=== PATIENT | female | born 1960 | race Hispanic/Latino ===

== ENCOUNTER 2018-10-25 09:15 | Outpatient (CLI) | payer OTHER ==
--- NOTE | 2018-10-25 10:21 | RAD ---
MRI SCREENING TWO VIEWS SKULL: Date: 10-25-18 Provided Clinical History: History of inner ear surgery. FINDINGS: There is no metallic density seen within the orbits or inner ear. IMPRESSION: As above. POS: OFF
--- NOTE | 2018-10-25 13:17 | MRI ---
MRI OF THE LEFT KNEE: DATE: 10/25/2018. PROVIDED CLINICAL HISTORY: Left knee pain. FINDINGS: Evaluation is limited by patient body habitus . The cruciate and collateral ligaments appear grossly intact. There is extensive nondisplaced degenerative tearing involving the medial and lateral menisci. There is extensive full-thickness articular cartilage loss involving the central weightbearing portions of the medial femorotibial joint. There is extensive full-thickness articular cartilage loss involving the patella and trochlea. There is a moderate knee joint effusion. No focal concerning regional marrow or muscular signal abno rmality is evident. Probable 6 mm intraarticular body within the suprapatellar bursa. IMPRESSION: 1. Limited study. 2. 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 3. Prominent articular cartilage loss involving the patellofemoral and medial femorotibial joints. 4. Moderate knee joint effusion with prominent Solis's cyst formation. POS: OFF
--- NOTE | 2018-10-25 14:16 | CT ---
MRI CLEARANCE STUDY CT TEMPORAL BONES NONCONTRAST: Date: 10-25-18 ATTN BILLING DEPARTMENT: The patient should not be charged for either the technical fee or profession al fee for this CT. History: 58-year-old female scheduled for MR of lower extremity today. History of ear surgery. Uncertainty reg arding whether there is a metallic ossicular prosthesis. FINDINGS: There is a left mastoidectomy defect, with absence of the left posterior external auditory canal osse ous wall, such that the region of the left mastoid antrum is obliterated, widely communicating with t he external auditory canal. Despite this, there is what appears to be a tympanic membrane which is thickened posteriorly and supe riorly. There appears to be a tiny defect in the left tympanic membrane along the anterior edge of th is thickening. Also, the stapes remains, with its crura and foot plate at the oval window. The rest o f the ossicles are absent. There is no ossicular prosthesis. Other than the thickening of the left ty mpanic membrane, the left middle ear cavity, and the mastoidectomy defect are clear. The right ossicles are intact. The right middle ear cavity, right internal auditory canal and right m astoid antrum are clear. There is a paucity of pneumatized right mastoid air cells. The bilateral internal auditory canals, cochlea, vestibules, vesicular aqua ducts, semicircular canal s, facial nerve canals, carotid canals and jugular bulbs have normal morphology. There is no dehiscen se of the superior semicircular canals. Right scutum is intact. No dehiscense of tegmen tympani or te gmen mastoideum bilaterally. IMPRESSION: 1. No ossicular prosthesis. The patient is cleared for MRI. 2. Status post modified left wall-down mastectomy. Stapes is intact, but the rest of the ossicles are absent. 3. Signs of left tympanic membrane repair. Possible current perforation of left tympanic membrane. 4. Otherwise, the mastectomy bowl is clear. 5. Paucity of right pneumatized right mastoid air cells. 6. No other abnormality of right temporal bone structures. POS: [facility]
== END 2018-10-25 09:16 | disposition home or self-care (01) ==
LOC: BICMRI 09:15
PROVIDERS: ATTEND Family Medicine
DX: M25.461 Effusion, right knee (principal); M25.462 Effusion, left knee; M17.0 Bilateral primary osteoarthritis of knee; M25.561 Pain in right knee; M25.562 Pain in left knee; M23.301 Other meniscus derangements, unspecified lateral meniscus, left knee; M23.304 Other meniscus derangements, unspecified medial meniscus, left knee; M71.22 Synovial cyst of popliteal space [Baker], left knee; Z90.12 Acquired absence of left breast and nipple; Z98.890 Other specified postprocedural states
CPT/HCPCS: 70250; 70480

== ENCOUNTER 2018-12-11 08:55 | Outpatient (CLI) | payer OTHER ==
--- NOTE | 2018-12-11 11:03 | MMO ---
BILATERAL MAMMOGRAMS: DATE: 12/11/18 HISTORY: Screening mammography. COMPARISON: Multiple exams back to 07/17/13. FINDINGS: Scattered fibroglandular densities and benign-appearing calcifications. No dominant mass or suspiciou s calcifications. The study was evaluated with the assistance of computer-aided detection. IMPRESSION: BIRADS 1: Negative Suggest routine follow-up. POS: [facility]
== END 2018-12-11 08:56 | disposition home or self-care (01) ==
LOC: SCSMAMMO 08:55
PROVIDERS: ATTEND Family Medicine
DX: Z12.31 Encounter for screening mammogram for malignant neoplasm of breast (principal)
CPT/HCPCS: 77067

== ENCOUNTER 2019-03-25 21:48 | Emergency (ER) | payer OTHER ==
--- NOTE | 2019-03-25 22:39 | RAD ---
2 views chest: 03/25/2019 COMPARISON: None HISTORY: Substernal chest pressure with radiation to the left arm FINDINGS: Mild pulmonary vascular congestion. No pneumothorax, pleural fluid, focal consolidation, or alveolar edema. Cardiac silhouette is mildly prominent on the lateral examination. Multilevel mild mid thoracic spine degenerative change noted. IMPRESSION: Pulmonary vascular congestion with no focal consolidation or alveolar edema.
[2019-03-25 22:49] LABS: #Eosinphils 0.1 thou/uL (0.0-0.7); #Lymphocytes 0.8 thou/uL (1.20-3.40); #Monocytes 0.6 thou/uL (0.11-0.59); #Neutrophils 7.6 thou/uL (1.40-6.50); %Basophils 0.2 % (0.0-1.0); %Eosinophils 0.8 % (0.0-10.0); %Monocytes 6.3 % (0.0-10.0); %Neutrophils 83.7 % (42.0-75.0); Hemoglobin 11.1 g/dL (12.0-16.0); Mean Corpuscular HGB CONC 31.1 g/dL (32.0-36.0); Mean Corpuscular Hemoglobin 25.2 pg (27.0-31.0); Mean Platelet Volume 7.9 fL (7.4-10.4); Platelet Count 234 thou/uL (130-400); RBC Distribution Width 14.1 % (11.5-14.5); Red Blood Cell (RBC) Count 4.41 mill/uL (4.20-5.40); White Blood Cell (WBC) Count 9.1 thou/uL (4.8-10.8)
[2019-03-25 23:07] LABS: ALT (SGPT) 15 U/L (8-55); AST (SGOT) 17 U/L (5-34); Albumin 4.1 g/dL (3.5-5.0); Alkaline Phosphatase 39 U/L (40-150); Anion Gap 11 mmol/L (10-20); BUN (Urea Nitrogen) 16 mg/dL (9.8-20.1); Bilirubin, Total 0.3 mg/dL (0.2-1.2); CK (CPK) 85 U/L (29-168); Calc. Creatinine Clearance 0 mL/min (70-130); Calcium 8.9 mg/dL (7.8-10.44); Carbon Dioxide 27 mmol/L (22-29); Chloride 103 mmol/L (98-107); Estimated GFR-MDRD 66; Globulin 2.6 g/dL (2.4-3.5); Glucose 88 mg/dL (70-105); Potassium 3.9 mmol/L (3.5-5.1); Protein, Total 6.7 g/dL (6.0-8.3); Sodium 137 mmol/L (136-145)
[2019-03-26 02:09] LABS: Troponin I Less than 0.010 ng/mL (< 0.028)
--- NOTE | 2019-03-29 09:46 | EKG ---
Test Reason : REPEAT Blood Pressure : / mmHG Vent. Rate : 058 BPM Atrial Rate : 058 BPM P-R Int : 154 ms QRS Dur : 084 ms QT Int : 456 ms P-R-T Axes : 039 015 063 degrees QTc Int : 447 ms Sinus bradycardia Possible Left atrial enlargement Borderline ECG Confirmed by DONOVAN NEELY DO ([id number]), videotape editor MIKE SLADE ([id number]) on 03/29/2019 9:46:23 AM Referred By: Confirmed By:DONOVAN NEELY DO
--- NOTE | 2019-03-29 10:34 | EKG ---
Test Reason : Blood Pressure : / mmHG Vent. Rate : 050 BPM Atrial Rate : 050 BPM P-R Int : 164 ms QRS Dur : 074 ms QT Int : 472 ms P-R-T Axes : 021 004 026 degrees QTc Int : 430 ms Sinus bradycardia Otherwise normal ECG Confirmed by HARSHAL MONGE ([id number]), international editorial producer MIKE SLADE ([id number]) on 03/29/2019 10:34:07 AM Referred By: Confirmed By:HARSHAL MONGE
== END 2019-03-26 03:30 | disposition home or self-care (01) ==
LOC: ERS 21:48 → EEVIPCON 21:48 → ERS 03-26 03:30
DX: R07.2 Precordial pain (principal); I25.2 Old myocardial infarction; Z79.899 Other long term (current) drug therapy
CPT/HCPCS: 36415; 71046; 80053; 82550; 83880; 84484; 85025; 93005